=== PATIENT | female | born 1990 | race Caucasian/White ===

== ENCOUNTER 2017-11-01 12:26 | Emergency (ER) | payer BC ==
[2017-11-01 12:52] VITALS: BP 133/90
[2017-11-01] MEDS ORDERED: HYDROcodone/ACETAMIN 5-325 MG* 1 TAB PO ONE (14:08)
--- NOTE | 2017-11-01 14:17 | UC ---
Babatunde Azevedo Gabriel, scribed for Ju Snyder MD on 11/01/17 at 1337 . Upper Extremity HPI - HPI Summary HPI Summary: This patient is a 27 year old F presenting [place] [facility] [place] chief complaint of left upper back pain that began last night. Pt states she heard a pop as she turned to the right last night while cutting strawberries. The pop was between the left shoulder blade and spine, after it happened it caused an intense radiating pain through her back. Pt has had increased tightness in her left lower back for the past week. The patient rates the pain 8/10 in severity. Symptoms aggravated by taking a deep breath, sitting, side lying, and bending over. Patient reports nausea and tingling/numbness in the left dorsal aspect of the hand. Patient denies dysuria, hematuria, fever, melena, rash, increased urinary frequency, incontinence of bowel/bladder, and diarrhea. + "upset" stomach last couple days. LNMP 5-5-18. She is able to ambulate. Allergic to keflex. Hx herniated disc due to a fall, surgery done in 2008. Pt sees a chiropractor regularly. - History of Current Complaint Chief Complaint: UCBackPain Stated Complaint: BACK PAIN Time Seen by Provider: 11/01/17 13:33 Hx Obtained From: Patient Hx Last Menstrual Period: 10/04/17 Onset/Duration: Still Present Severity Initially: Moderate Severity Currently: Moderate Pain Intensity: 8 Pain Scale Used: 0-10 Numeric Associated Signs And Symptoms: Positive: Numbness/Tingling - LUE, Other - back pain - Allergies/Home Medications Allergies/Adverse Reactions: Allergies Allergy/AdvReac Type Severity Reaction Status Date / Time cephalexin [From Keflex] Allergy Hives Verified 11/01/17 12:53 fentanyl Allergy itchiness Verified 11/01/17 12:53 Home Medications: Home Medications NK [No Home Medications Reported] 11/01/17 [History Confirmed 11/01/17] PMH/Surg Hx/FS Hx/Imm Hx Neurological History: Other Other Neurological History: nerve damage and herniated disc Other History Of: Negative For: HIV - Surgical History Surgical History: Yes Surgery Procedure, Year, and Place: ' lower back surgery, L5 S1 HERNIATED DISC - Family History Known Family History: Positive: Respiratory Disease - asthma Negative: Renal Disease, Seizure Disorder, Blood Disorder - Social History Alcohol Use: Rare Substance Use Type: None Smoking Status (MU): Never Smoked Tobacco - Immunization History Most Recent Tetanus Shot: unknown Review of Systems Gastrointestinal: Nausea Musculoskeletal: Other: - back pain Neurological: Numbness All Other Systems Reviewed And Are Negative: Yes Physical Exam Triage Information Reviewed: Yes Appearance: Well-Nourished - tearful Vital Signs: Initial Vital Signs Temp 98 F 11/01/17 12:49 Pulse 90 11/01/17 12:49 Resp 20 11/01/17 12:49 BP 133/90 11/01/17 12:49 Pulse Ox 100 11/01/17 12:49 Vital Signs Reviewed: Yes Eye Exam: Normal ENT Exam: Other - mild post redness (pt reports hx post nasal drip) Neck: Positive: Supple, Nontender Respiratory Exam: Normal Respiratory: Positive: Chest non-tender, Lungs clear, Normal breath sounds, No respiratory distress Cardiovascular Exam: Normal Cardiovascular: Positive: RRR, No Murmur, Pulses Normal, Brisk Capillary Refill Abdominal Exam: Normal Abdomen Description: Positive: Nontender Musculoskeletal Exam: Other - Tender L lower back (just next to upper lumber region), + spasm. + lower mid lumbar surgical scar Tender L upper back (approx mid upper thoracic), + spasm Without point bony tenderness + subj dysesthesias L upper hand and wrist. Strength BUE good, gait slow, painful, steady DTR's Pat 2+ equal Distal sens BLE + present LT Nondiaphoretic Neurological Exam: Other Psychological Exam: Normal - appropriately tearful Skin Exam: Normal Upper Extremity Course/Dx - Course Course Of Treatment: Reviewed urine dip with Maria E, and recommendation for follow up (when not on menses). Pt will go pov, family member will drive. Questions as posed answered to the best of my ability. - Differential Dx/Diagnosis Provider Diagnoses: Acute upper and lower back pain with dysesthesias - Physician Notification/Consults Discussed Patient Care With: Kalpana Carpenter Time Discussed With Above Provider: 14:01 Instructed by Provider To: Other - I discussed patient care with LAURY Contreras and informed her of the patients case and that they will be transferred Discharge - Sign-Out/Discharge Documenting (check all that apply): Discharge/Admit/Transfer - Discharge Plan Condition: Stable Disposition: HOME Patient Education Materials: Back Pain (ED) Referrals: No Primary Care Phys,NOPCP [Primary Care Provider] - Additional Instructions: Your blood pressure was elevated during today's visit, 133/90. Please follow up with your primary care provider in 1-2 weeks. Go directly to the Emergency Department. Call 911 if problems [address] way. - Billing Disposition and Condition Condition: STABLE Disposition: Home Consult Consult: 4503: I discussed patient care with Dr. Campos, radiology and they suggests getting an MRI. The documentation as recorded by the Babatunde cabezas Gabriel accurately reflects the service I personally performed and the decisions made by me, Ju Snyder MD.
== END 2017-11-01 14:20 | disposition home or self-care (01) ==
LOC: UCEAST 12:26
DX: M54.6 Pain in thoracic spine (principal); M54.5 Low back pain; R20.8 Other disturbances of skin sensation; Z88.1 Allergy status to other antibiotic agents; Z88.5 Allergy status to narcotic agent
CPT/HCPCS: 81003; 84702; 87086; 99212; G0463

== ENCOUNTER 2017-11-01 14:50 | Emergency (ER) | payer BC ==
--- NOTE | 2017-11-01 16:59 | ED ---
Back Pain - HPI Summary HPI Summary: Patient here with Lt sided mid thoracic pain/Lt medial scapular pain after rotating towards the right last night. She reports hearing and feeling a pop and has had some mild paresthesia in her left hand affecting all fingers. No jennifer numbness or weakness here; just feels like pins and needles. Denies neck pain, chest pain, shortness of breath but pain is worse w/ deep breath. Leading up to this event, she had some left-sided quadratus lumborum pain. History of lumbar disc herniation with surgical repair. No residual issues. No previous issues with thoracic spine however she has full-sized breasts which could contribute to thoracic pathology. - History of Current Complaint Chief Complaint: EDBackInjuryPain Stated Complaint: LT SHOULDER PAIN Time Seen by Provider: 11/01/17 15:45 Hx Obtained From: Patient Hx Last Menstrual Period: 10/04/17 Pain Intensity: 6 - Allergies/Home Medications Allergies/Adverse Reactions: Allergies Allergy/AdvReac Type Severity Reaction Status Date / Time cephalexin [From Keflex] Allergy Hives Verified 11/01/17 14:56 fentanyl Allergy itchiness Verified 11/01/17 14:56 PMH/Surg Hx/FS Hx/Imm Hx Previously Healthy: Yes Endocrine/Hematology History: Denies: Hx Diabetes, Hx Thyroid Disease Cardiovascular History: Denies: Hx Hypertension Respiratory History: Denies: Hx Asthma, Hx Chronic Obstructive Pulmonary Disease (COPD) GI History: Denies: Hx Ulcer Musculoskeletal History: Reports: Hx Back Problems - lumbar disc herniation resulting in repair Psychiatric History: Reports: Other Psychiatric Issues/Disorders - bipolar; migraine Denies: Hx of Violent Episodes Against Others - Surgical History Surgery Procedure, Year, and Place: '09 lower back surgery, L5 S1 HERNIATED DISC Infectious Disease History: No Infectious Disease History: Denies: Hx Clostridium Difficile, Hx Hepatitis, Hx Human Immunodeficiency Virus (HIV), Hx of Known/Suspected MRSA, Hx Shingles, Hx Tuberculosis, Hx Known/ Suspected VRE, Hx Known/Suspected VRSA, History Other Infectious Disease, Traveled Outside the [place] in Last 30 Days - Family History Known Family History: Positive: Respiratory Disease - asthma Negative: Renal Disease, Seizure Disorder, Blood Disorder - Social History Alcohol Use: Rare Hx Substance Use: No Substance Use Type: Reports: None Hx Tobacco Use: No Smoking Status (MU): Never Smoked Tobacco Review of Systems Constitutional: Negative Negative: Fever, Chills, Fatigue Negative: Chest Pain Negative: Shortness Of Breath, Cough Negative: Vomiting Negative: incontinence Positive: Arthralgia, Myalgia Skin: Negative Positive: Paresthesia. Negative: Headache, Weakness, Numbness Psychological: Normal All Other Systems Reviewed And Are Negative: Yes Physical Exam Triage Information Reviewed: Yes Vital Signs On Initial Exam: Initial Vitals Temp Pulse Resp BP Pulse Ox 98 F 84 16 141/105 99 11/01/17 14:53 11/01/17 14:53 11/01/17 14:53 11/01/17 14:53 11/01/17 14:53 Vital Signs Reviewed: Yes Appearance: Positive: Well-Appearing, Pain Distress - mild, Obese Skin: Positive: Warm, Skin Color Reflects Adequate Perfusion, Dry Head/Face: Positive: Normal Head/Face Inspection Eyes: Positive: Normal, EOMI ENT: Positive: Hearing grossly normal, Pharynx normal Neck: Positive: Supple, Nontender Respiratory/Lung Sounds: Positive: Breath Sounds Present Cardiovascular: Positive: Normal, RRR Musculoskeletal: Positive: Strength/ROM Intact, Pain @ - Lt mid thoracic paraspinal tissue TTP - this continues to be tender down through Lumbar paraspinal m on same side Neurological: Positive: Alert, Oriented to Person Place, Time, CN Intact II-III , Other - motor intact and equal B/L; strength 5/5 and equal B/L - pt reports slightly decreased sensation with gross touch over Lt fingers Psychiatric: Positive: Normal Diagnostics - Vital Signs Vital Signs Temp Pulse Resp BP Pulse Ox 11/01/17 14:53 98 F 84 16 141/105 99 - Laboratory Lab Statement: Any lab studies that have been ordered have been reviewed, and results considered in the medical decision making process. Back Pain Course/Dx - Course Course Of Treatment: Pt signed out to [facility] Red pending CT scan. Stable condition. - Diagnoses Provider Diagnoses: Thoracic radiculopathy Discharge - Sign-Out/Discharge Documenting (check all that apply): Sign-Out Patient Signing out patient TO: Ryder Cedillo - Discharge Plan Condition: Stable Prescriptions: Diazepam TAB(*) [Valium TAB(*)] 5 mg PO BEDTIME PRN #5 tab MDD 1 PRN Reason: Pain Ibuprofen TAB* [Motrin TAB* 800 MG] 800 mg PO Q8HR PRN #20 tab PRN Reason: Pain Forms: *Work Release - Billing Disposition and Condition Condition: STABLE
[2017-11-01] MEDS ORDERED: Ketorolac INJ* 60 MG/2 ML VIAL IM ONE (17:02)
[2017-11-01] MEDS ORDERED: Diazepam TAB(*) 5 MG PO ONE (17:02)
--- NOTE | 2017-11-01 17:42 | RAD ---
Indication: Back pain. Left hand paresthesias. CT of the thoracic spine was obtained in the axial plane. Sagittal and coronal reconstructed images were obtained. There is no fracture noted. Inferior endplate changes at T11 are noted which was present on previous exam. Degenerative disc disease at T8-T9 is noted. Endplate irregularity T7 inferior endplate minimal ventral osteophyte formation is noted. No obvious fracture is noted. IMPRESSION: Endplate changes at T11 inferior endplate as well as T7 and T6 with mild ventral osteophyte formation at T8-T9. Small osteophytes are noted throughout the upper thoracic spine.
--- NOTE | 2017-11-01 17:50 | PN ---
Progress Note - Progress Note Date of Service: 11/01/17 Note: CT thoracic spine negative for acute process. Patient will be discharged home with medications as prescribed by Kalpana Carpenter.
[2017-11-01 18:04] VITALS: BP 138/86
== END 2017-11-01 18:03 | disposition home or self-care (01) ==
LOC: ED 14:50
DX: M54.14 Radiculopathy, thoracic region (principal); F31.9 Bipolar disorder, unspecified; Z88.1 Allergy status to other antibiotic agents; Z88.5 Allergy status to narcotic agent; Z82.5 Family history of asthma and other chronic lower respiratory diseases
CPT/HCPCS: 36415; 72128; 84702; 96372; 99282; A9270-GY; J1885

== ENCOUNTER 2018-08-06 13:01 | Emergency (ER) | payer BC ==
[2018-08-06] MEDS ORDERED: Dexamethasone IV* 4 MG/ML 1 ML (4 MG) IM ONE (15:43)
[2018-08-06] MEDS ORDERED: Ketorolac INJ* 60 MG/2 ML VIAL IM ONE (15:43)
[2018-08-06] MEDS ORDERED: Orphenadrine Citrate IV* 30 MG/ML 2 ML VIAL IM ONE (15:43)
--- NOTE | 2018-08-06 15:43 | ED ---
Back Pain - HPI Summary HPI Summary: A 28 y/o F presents to ED with bilateral lower back pain onset yesterday and worsening. Patient states she was lifting her friend's daughter up when she felt a pop in her back. Through the night and today, the pain spread. The pain is rated 8 out of 10 at bedside. She states it's a muscular pain. It's sore and tight bilaterally, but the R-side is worse than her L. She has PMHx: sciatica, back surgery. The pain is radiating into her RLE. She denies incontinence of any kind, as well saddle pain. She is amble to ambulate and bear weight with pain. - History of Current Complaint Chief Complaint: EDBackInjuryPain Stated Complaint: I HURT MY BACK PER PT Time Seen by Provider: 08/06/18 15:38 Hx Obtained From: Patient Hx Last Menstrual Period: 10/04/17 Onset/Duration: Sudden Onset, Lasting Days, Still Present Onset/Duration: Started Hours Ago, Still Present Timing: Constant Back Pain Location: Is Discrete @ - lower back, Radiates To - RLE Severity Initially: Moderate Severity Currently: Severe Pain Intensity: 8 Pain Scale Used: 0-10 Numeric Associated Signs And Symptoms: Negative: Bladder Incontinence, Bowel Incontinence, Other - neg: saddle pain Related History: Previous Back Injury - Allergies/Home Medications Allergies/Adverse Reactions: Allergies Allergy/AdvReac Type Severity Reaction Status Date / Time cephalexin [From Keflex] Allergy Hives Verified 08/06/18 13:13 fentanyl Allergy itchiness Verified 08/06/18 13:13 PMH/Surg Hx/FS Hx/Imm Hx Previously Healthy: No Endocrine/Hematology History: Denies: Hx Diabetes, Hx Thyroid Disease Cardiovascular History: Denies: Hx Hypertension Respiratory History: Denies: Hx Asthma, Hx Chronic Obstructive Pulmonary Disease (COPD) GI History: Denies: Hx Ulcer Musculoskeletal History: Reports: Hx Back Problems - lumbar disc herniation resulting in repair, Other Musculoskeletal History - sciatica Psychiatric History: Reports: Other Psychiatric Issues/Disorders - bipolar; migraine Denies: Hx of Violent Episodes Against Others - Surgical History Surgery Procedure, Year, and Place: '09 lower back surgery, L5 S1 HERNIATED DISC Infectious Disease History: No Infectious Disease History: Denies: Hx Clostridium Difficile, Hx Hepatitis, Hx Human Immunodeficiency Virus (HIV), Hx of Known/Suspected MRSA, Hx Shingles, Hx Tuberculosis, Hx Known/ Suspected VRE, Hx Known/Suspected VRSA, History Other Infectious Disease, Traveled Outside the [place] in Last 30 Days - Family History Known Family History: Positive: Respiratory Disease - asthma Negative: Renal Disease, Seizure Disorder, Blood Disorder - Social History Occupation: Employed Full-time Lives: Dormitory/Roommates Alcohol Use: Rare Hx Substance Use: No Substance Use Type: Reports: None Hx Tobacco Use: No Smoking Status (MU): Never Smoked Tobacco Review of Systems Negative: Fever Negative: incontinence Musculoskeletal: Other - pos: lower back pain radiating to RLE Negative: Other - neg: saddle pain All Other Systems Reviewed And Are Negative: Yes Physical Exam - Summary Physical Exam Summary: VITAL SIGNS: Reviewed. GENERAL: Patient is a well-developed and nourished (MALE OR FEMALE) who is lying comfortable in the stretcher. Patient is not in any acute respiratory distress. HEAD AND FACE: No signs of trauma. No ecchymosis, hematomas or skull depressions. No sinus tenderness. EYES: PERRLA, EOMI x 2, No injected conjunctiva, no nystagmus. EARS: Hearing grossly intact. Ear canals and tympanic membranes are within normal limits. MOUTH: Oropharynx within normal limits. NECK: Supple, trachea is midline, no adenopathy, no JVD, no carotid bruit, no c- spine tenderness, neck with full ROM. CHEST: Symmetric, no tenderness at palpation LUNGS: Clear to auscultation bilaterally. No wheezing or crackles. CVS: Regular rate and rhythm, S1 and S2 present, no murmurs or gallops appreciated. ABDOMEN: Soft, non-tender. No signs of distention. No rebound, no guarding, and no masses palpated. Bowel sounds are normal. EXTREMITIES: FROM in all major joints, no edema, no cyanosis or clubbing. BACK: Paraspinal muscle tenderness. Positive straight leg test to 45 degrees. NEURO: Alert and oriented x 3. No acute neurological deficits. Speech is normal and follows commands. SKIN: Dry and warm Triage Information Reviewed: Yes Vital Signs On Initial Exam: Initial Vitals Temp Pulse Resp BP Pulse Ox 97.6 F 83 16 134/81 98 08/06/18 13:08 08/06/18 13:08 08/06/18 13:08 08/06/18 13:08 08/06/18 13:08 Vital Signs Reviewed: Yes Diagnostics - Vital Signs Vital Signs Temp Pulse Resp BP Pulse Ox 08/06/18 13:08 97.6 F 83 16 134/81 98 - Laboratory Lab Results: Lab Results 08/06/18 Range/Units 14:21 Beta HCG, Quant < 0.60 mIU/mL Lab Statement: Any lab studies that have been ordered have been reviewed, and results considered in the medical decision making process. - Radiology L-SPINE Radiology Interpretation Completed By: Radiologist Summary of Radiographic Findings: IMPRESSION: #. Chronic advanced degenerative spondylosis at L5-S1. ED provider has reviewed this report. Back Pain Course/Dx - Course Assessment/Plan: Patient is a 28-year-old female who presents to the emergency department with a chief complaint of lower back pain. The patient has a history of sciatica. X-ray of the lumbar spine shows chronic advanced degenerative spondylolysis at the level of L5 and S1. The patient doesnt have any urinary or fecal dysfunction. The patient is able to ambulate. She ambulated to the room. The patient was given Toradol, Norflex, Decadron and Snelling and her symptoms have significantly improved. Therefore the patient will be discharged home with follow-up with primary care physician. Patient was given a prescription for ibuprofen, Robaxin, and Medrol Dosepak. All her questions were answered and there is no further concerns. - Diagnoses Differential Diagnosis/HQI/PQRI: Positive: Herniated Disc, Strain, Sprain Provider Diagnoses: Back pain Discharge - Sign-Out/Discharge Documenting (check all that apply): Patient Departure - D/C Patient Received Moderate/Deep Sedation with Procedure: No - Discharge Plan Condition: Stable Disposition: HOME Prescriptions: Methocarbamol TAB* [Robaxin 500 MG TAB*] 750 mg PO TID PRN #12 tab PRN Reason: Spasms - Back methylPREDNISolone [Medrol Dosepak 4 MG*] 0 mg PO .SEE TRACI INSTRUCTION #1 traci Patient Education Materials: Methocarbamol (By mouth), Methylprednisolone (By mouth), Low Back Strain (ED) [place] [facility] [facility] [place]Outside] Care [facility] [Outside] - 3 Days Additional Instructions: RETURN TO THE ED FOR ANY WORSENING OR NEW SYMPTOMS. - Billing Disposition and Condition Condition: STABLE Disposition: Home - Attestation Statements Document Initiated by Scribe: Yes Documenting Scribe: Laura Drummond Provider For Whom Scribe is Documenting (Include Credential): Dr. Mckinley Hargrove MD Scribe Attestation: I, Laura Drummond, christopheribed for Dr. Mckinley Hargrove MD on 08/06/18 at 1833. Scribe Documentation Reviewed: Yes Provider Attestation: The documentation as recorded by the raulito, Laura Drummond accurately reflects the service I personally performed and the decisions made by me, Dr. Mckinley Hargrove MD Status of Scribe Document: Viewed
[2018-08-06] MEDS ORDERED: HYDROcodone/ACETAMIN 5-325 MG* 1 TAB PO ONE (15:44)
[2018-08-06 17:36] VITALS: BP 140/89
== END 2018-08-06 17:35 | disposition home or self-care (01) ==
LOC: ED 13:01
DX: M54.5 Low back pain (principal); M47.817 Spondylosis without myelopathy or radiculopathy, lumbosacral region; Z88.1 Allergy status to other antibiotic agents; Z88.5 Allergy status to narcotic agent
CPT/HCPCS: 36415; 72110; 84702; 96372; 99282; J1100; J1885; J2360